=== PATIENT | female | born 1990 ===

== ENCOUNTER 2017-09-30 09:19 | Outpatient (CLI) | payer OTHER ==
[2017-09-30] MEDS ORDERED: ISOVUE-370 76%-LOCM 1 ML ONE (11:10)
== END 2017-09-30 09:20 | disposition home or self-care (01) ==
LOC: ICCT 09:19
PROVIDERS: ATTEND Family Medicine
DX: R19.00 Intra-abdominal and pelvic swelling, mass and lump, unspecified site (principal); K43.9 Ventral hernia without obstruction or gangrene; K80.20 Calculus of gallbladder without cholecystitis without obstruction
CPT/HCPCS: 74177